=== PATIENT | male | born 1945 | race Caucasian/White ===

== ENCOUNTER 2019-01-06 12:56 | Emergency (ER) | payer MEDICARE, BC ==
[~2019-01-06] VITALS: Ht 172.7 cm; Wt 85.3 kg
[2019-01-06 13:23] LABS: Source, Urine Clean Catch
[2019-01-06 13:29] LABS: Bilirubin, Urine Neg (Neg); Blood, Urine 5+ (Neg); Glucose Qualitative, Urine Neg (Neg); Ketones, Urine Neg (Neg); Leukocyte Esterase, Urine 3+ (Neg); Nitrite, Urine Pos (Neg); Protein, Urine 3+ (Neg); Specific Gravity, Urine 1.025 (1.003-1.022); Urobilinogen, Urine NORM (Normal)
[2019-01-06 13:43] LABS: Appearance, Urine Turbid (Clear); Color, Urine Yellow (P-Yellow)
[2019-01-06 13:44] LABS: Bacteria Many /hpf; Red Blood Cells, Urine TNTC /hpf (0-2); Squamous Epithelial Cells Not Seen /hpf (Few); White Blood Cells, Urine TNTC /hpf (0-5)
[2019-01-06] MEDS ORDERED: FINA5 PO (13:50)
[2019-01-06] MEDS ORDERED: Cipro500 MG PO (14:09)
== END 2019-01-06 14:16 | disposition home or self-care (01) ==
LOC: ER 12:56
PROVIDERS: Physician Assistant
DX: N30.90 Cystitis, unspecified without hematuria (principal)
CPT/HCPCS: 81001; 87077; 87086; 87186; 99283

== ENCOUNTER 2019-01-20 15:53 | Emergency (ER) | payer MEDICARE, BC ==
[~2019-01-20] VITALS: Ht 172.7 cm; Wt 85.7 kg
[~2019-01-20 15:53] MED LIST: Cipro500 MG PO; FINA5 PO
[2019-01-20] MEDS ORDERED: Cipro500 MG PO (16:10)
[2019-01-20] MEDS ORDERED: TAMS.4ER PO (16:12)
[2019-01-20 16:25] LABS: Source, Urine Clean Catch
[2019-01-20 16:35] LABS: Appearance, Urine Hazy (Clear); Bilirubin, Urine Neg (Neg); Blood, Urine 5+ (Neg); Color, Urine Yellow (P-Yellow); Glucose Qualitative, Urine Neg (Neg); Ketones, Urine Neg (Neg); Leukocyte Esterase, Urine 3+ (Neg); Nitrite, Urine Neg (Neg); Protein, Urine 3+ (Neg); Specific Gravity, Urine 1.025 (1.003-1.022); Urobilinogen, Urine NORM (Normal)
[2019-01-20 17:17] LABS: Red Blood Cells, Urine 50-100 /hpf (0-2); White Blood Cells, Urine 50-100 /hpf (0-5)
[2019-01-20 17:18] LABS: Bacteria Mod /hpf; Squamous Epithelial Cells Rare /hpf (Few)
[2019-01-20 17:19] LABS: Yeast/Fungi Urine Rare /hpf
== END 2019-01-20 16:20 | disposition home or self-care (01) ==
LOC: ER 15:53
PROVIDERS: Physician Assistant
DX: R30.0 Dysuria (principal); Z79.899 Other long term (current) drug therapy
CPT/HCPCS: 81001; 87086; 99283